=== PATIENT | female | born 1965 | race African-American/Black ===

== ENCOUNTER 2023-08-11 08:46 | Day surgery (SDC) | payer OTHER ==
[~2023-08-11] VITALS: Ht 160 cm; Wt 61.7 kg
[2023-08-11] MEDS ORDERED: fentaNYL citrate 0.05 MG/ML VIAL ONE (09:35)
[2023-08-11] MEDS ORDERED: LIDOCAINE 2% 100 MG/5 ML UJET TP ONE (09:35)
[2023-08-11] MEDS ORDERED: fentaNYL citrate 0.05 MG/ML VIAL IVP ONE (11:10)
== END 2023-08-11 10:40 | disposition home or self-care (01) ==
LOC: MMU 08:46 → MOR 08:46
PROVIDERS: ATTEND Internal Medicine Gastroenterology
DX: Z12.11 Encounter for screening for malignant neoplasm of colon (principal); K63.5 Polyp of colon; K64.9 Unspecified hemorrhoids
CPT/HCPCS: 45385; J3010